=== PATIENT | male | born 1985 | race Caucasian/White ===

== ENCOUNTER 2018-10-29 23:00 | Inpatient (IN) | payer BC ==
[~2018-10-29] VITALS: Ht 185.4 cm; Wt 92.5 kg
[2018-10-29 23:00] VITALS: BP 140/88
--- NOTE | 2018-10-29 23:00 | NUR ---
ED Nurse Note: ROB POE RA 3 FROM HOME C/O NAUSE VOMITTING ABDOMINAL PAIN X 1900 TODAY. 2 ZOFRAN AND 2 MORPHING 4 MG WAS GIVEN ON THE FIELD PER EMS. PT VOMITTED WITH UNDIGESTED FOOD WHEN HE IS ON THE GURMD HAROLDO MADE AWARE. BLOOD WAS COLLECTED AND SENT TO LAB. PT IS COMPALINING OF 7/10 PAIN. GF ON BEDSIDE. WILL CONTINUE TO MONITOR.
--- NOTE | 2018-10-29 23:04 | Emergency Room Report ---
History of Present Illness General Chief Complaint: Abdominal Pain Source: Patient Present Illness HPI Is a 33-year-old male with no past medical history. He presents with chief complaint of acute onset of abdominal pain testicular pain. Onset about an hour ago. Multiple episodes vomiting. Pain is 10 out of 10. Pain radiates to bilateral testicles but mostly on the left side. EMS gave 8 mg of morphine and Zofran. Pain is better but still 8 out of 10. No diarrhea. Vomiting is nonbloody nonbilious. Denies any other complaint. Allergies: Coded Allergies: BEE VENOM PROTEIN (HONEY BEE) (Verified Allergy, Unknown, 10/29/18) Patient History Past Medical History: none, see triage record, old chart reviewed Past Surgical History: none Pertinent Family History: none Social History: Denies: smoking Immunizations: other Reviewed Nursing Documentation: PMH: Agreed; PSxH: Agreed Nursing Documentation-PMH Past Medical History: No Stated History Review of Systems Eye: Denies: eye pain, blurred vision ENT: Denies: ear pain, nose congestion, throat swelling Respiratory: Denies: cough, shortness of breath Cardiovascular: Denies: chest pain, palpitations Gastrointestinal: Reports: abdominal pain, nausea, vomiting; Denies: diarrhea Musculoskeletal: Denies: back pain, joint pain Skin: Denies: rash Neurological: Denies: headache, numbness Endocrine: Denies: increased thirst, increased urine Hematologic/Lymphatic: Denies: easy bruising All Other Systems: negative except mentioned in HPI Physical Exam Vital Signs Date Time Temp Pulse Resp B/P (MAP) Pulse Ox O2 Delivery O2 Flow Rate FiO2 10/29/18 22:55 90 18 140/88 99 Room Air vitals normal Sp02 EP Interpretation: reviewed, normal General Appearance: well appearing, no apparent distress, alert Head: normocephalic, atraumatic Eyes: bilateral eye PERRL, bilateral eye EOMI ENT: hearing grossly normal, normal pharynx Neck: full range of motion, supple, no meningismus Respiratory: chest non-tender, lungs clear, normal breath sounds Cardiovascular #1: regular rate, rhythm, no murmur Gastrointestinal: normal bowel sounds, non tender, no mass, no organomegaly, no bruit, non-distended Genitourinary: normal inspection, penis normal, other - No testicular tenderness or torsion Musculoskeletal: back normal, gait/station normal, normal range of motion Psychiatric: mood/affect normal Skin: warm/dry Medical Decision Making Diagnostic Impression: Primary Impression: Ureteral stone with hydronephrosis Additional Impressions: Intractable pain Asymptomatic bacteriuria ER Course Patient presents with renal colic with ureteral stone. He required multiple doses of pain medication. Still has pain and vomiting. Urine showed bacteria and small amount of white cells. Antibiotics given. Because of his intractable pain and possible UTI, will admit for pain control and urology consult. I contacted Dr. Monae for admission. Lab Results Impression labs unremarkable CT/MRI/US Diagnostic Results CT/MRI/US Diagnostic Results : Imaging Test Ordered: CT abdomen and pelvis Impression Read by radiologist. Obstructive uropathy secondary to 4 mm stone in the left distal ureter. Mild hydronephrosis. Mild periureteral stranding. Last Vital Signs Date Time Temp Pulse Resp B/P (MAP) Pulse Ox O2 Delivery O2 Flow Rate FiO2 10/29/18 22:55 90 18 140/88 99 Room Air Status: improved Disposition: ADMITTED INPATIENT Condition: Serious Scripts No Active Prescriptions or Reported Meds Alex Multani MD Oct 29, 2018 23:04
--- NOTE | 2018-10-29 23:05 | NUR ---
ED Nurse Note: pt unable to give urine specimen for now, morrod made aware. will continue to monitor.
[2018-10-29] MEDS ORDERED: Ketorolac 30mg Inj IV ONE (23:15)
[2018-10-29 23:17] LABS: BASOPHILS % (AUTO) 0.4 % (0.0-2.0); EOSINOPHILS % (AUTO) 1.9 % (0.0-3.0); HEMOGLOBIN 14.4 G/DL (14.2-18.0); LYMPHOCYTES % (AUTO) 11.9 % (20.0-45.0); MEAN CORPUSCULAR VOLUME 86 FL (80-99); MONOCYTES % (AUTO) 4.2 % (1.0-10.0); NEUTROPHILS % (AUTO) 81.7 % (45.0-75.0); PLATELET COUNT 251 K/UL (150-450); RED CELL DISTRIBUTION WIDTH 11.2 % (11.6-14.8)
[2018-10-29] MEDS ORDERED: Metoclopramide 10mg/2ml Inj ONE (23:30)
[2018-10-29] MEDS ORDERED: Metoclopramide 10mg/2ml Inj IVP ONE (23:30)
--- NOTE | 2018-10-29 23:30 | NUR ---
ED Nurse Note: PT VOMITTED UNDIOGESTED FOOD, PT STATED HE FEELS LIKE MOTION SICKNESS, REGLAN GIVEN IV. PT WENT TO CT WITH TECH
--- NOTE | 2018-10-29 23:40 | NUR ---
ED Nurse Note: PT CAME BACK FROM CT, DENIES HAVING ANOTHER VOMITUS. PT STATED HE FEELD OK. WILL CONTIONUE TO MONITOR.
[2018-10-30] MEDS ORDERED: HYDROmorphone 1mg/ml Carpuject IVP ONE (00:15)
[2018-10-30 00:17] LABS: ANION GAP 10 mmol/L (5-15); BLOOD UREA NITROGEN 20 mg/dL (7-18); CALCIUM 9.2 MG/DL (8.5-10.1); CARBON DIOXIDE 25 MMOL/L (21-32); CHLORIDE 105 MMOL/L (98-107); CREATININE 1.3 MG/DL (0.55-1.30); POTASSIUM 3.9 MMOL/L (3.5-5.1); SODIUM 140 MMOL/L (136-145)
[2018-10-30 00:21] LABS: ALANINE AMINOTRANSFERASE 45 U/L (12-78); ALBUMIN 3.8 G/DL (3.4-5.0); ALBUMIN/GLOBULIN RATIO 1.1 (1.0-2.7); ALKALINE PHOSPHATASE 86 U/L (46-116); ASPARTATE AMINO TRANSFERASE 18 U/L (15-37); BILIRUBIN,TOTAL 0.4 MG/DL (0.2-1.0)
[2018-10-30 01:15] LABS: APPEARANCE,URINE SLIGHTLY CLOUDY; BILIRUBIN, URINE NEGATIVE (NEGATIVE); GLUCOSE, URINE (UA) NEGATIVE (NEGATIVE); KETONES,URINE 3+ (NEGATIVE); LEUKOCYTE ESTERASE ,URINE 1+ (NEGATIVE); NITRITE,URINE NEGATIVE (NEGATIVE); PH,URINE 7 (4.5-8.0); PROTEIN,URINE 2+ (NEGATIVE); UROBILINOGEN,URINE NORMAL MG/DL (0.0-1.0)
[2018-10-30 01:19] LABS: COLOR,URINE YELLOW
[2018-10-30] MEDS ORDERED: cefTRIAXone 1 GM in NS 55 ML IVPB ONE (01:45)
[2018-10-30 02:16] VITALS: BP 147/86
--- NOTE | 2018-10-30 02:39 | NUR ---
ED Nurse Note: pt was admitted to the hospital, report given to mariam mae. pt left the ed with all belongings. gf notified to the room number
--- NOTE | 2018-10-30 02:45 | NUR ---
ED Nurse Note: pt transported by rn to room 421 with all belongings with stable vs.
[2018-10-30] MEDS: Hydromorphone 0.5mg/0.5ml inj IVP PRN ×2 (03:54→12:25)
[2018-10-30 04:00] VITALS: BP 144/96
--- NOTE | 2018-10-30 06:00 | NUR ---
NURSE NOTES: Admitted a 33 year old male, alert and oriented x4, with complaint of pain 8/10 on lower abdomen area. Oriented to room. Instructed the use of call light. Call light and needs in reach. Spoke to Dr. Lowery orders obtained and carried out.
--- NOTE | 2018-10-30 07:35 | NUR ---
HAND-OFF: Report given to MANDA Lane.
--- NOTE | 2018-10-30 07:51 | NUR ---
NURSE NOTES: Patient asleep, on sign of distress and shortness of breath; no sign of chest pain; on room air; NPO and sign of the door; girl-friend room in; urinal within reach; bed at lowest position, side rails up x2, breaks engaged; IV at LAC fluid running; Will keep monitoring.
[2018-10-30 08:00] VITALS: BP 141/88
--- NOTE | 2018-10-30 08:52 | Consultation ---
History of Present Illness General Date patient seen: Oct 30, 2018 Chief Complaint: Present Illness Allergies: Coded Allergies: BEE VENOM PROTEIN (HONEY BEE) (Verified Allergy, Unknown, 10/29/18) Medication History No Active Prescriptions or Reported Meds Patient History Healthcare decision maker Resuscitation status Full Code Advanced Directive on File Physical Exam Last 24 Hour Vital Signs Date Time Temp Pulse Resp B/P (MAP) Pulse Ox O2 Delivery O2 Flow Rate FiO2 10/30/18 04:46 Room Air 10/30/18 04:00 98.4 85 20 144/96 (112) 99 10/30/18 02:45 98.0 84 12 147/86 98 Room Air 10/30/18 02:16 84 12 147/86 98 Room Air 10/30/18 01:19 98.0 10/29/18 23:38 98.0 10/29/18 23:00 98.0 70 18 140/88 99 Room Air 10/29/18 23:00 90 18 Room Air 10/29/18 22:55 90 18 140/88 99 Room Air Intake and Output 10/29/18 10/30/18 19:00 07:00 Intake Total 4260 ml Balance 4260 ml Intake IV Total 4260 ml # Voids 2 Laboratory Tests Test 10/29/18 23:03 10/29/18 23:59 10/30/18 01:07 White Blood Count 16.0 K/UL (4.8-10.8) H Red Blood Count 4.90 M/UL (4.70-6.10) Hemoglobin 14.4 G/DL (14.2-18.0) Hematocrit 42.0 % (42.0-52.0) Mean Corpuscular Volume 86 FL (80-99) Mean Corpuscular Hemoglobin 29.5 PG (27.0-31.0) Mean Corpuscular Hemoglobin Concent 34.4 G/DL (32.0-36.0) Red Cell Distribution Width 11.2 % (11.6-14.8) L Platelet Count 251 K/UL (150-450) Mean Platelet Volume 7.9 FL (6.5-10.1) Neutrophils (%) (Auto) 81.7 % (45.0-75.0) H Lymphocytes (%) (Auto) 11.9 % (20.0-45.0) L Monocytes (%) (Auto) 4.2 % (1.0-10.0) Eosinophils (%) (Auto) 1.9 % (0.0-3.0) Basophils (%) (Auto) 0.4 % (0.0-2.0) Sodium Level 140 MMOL/L (136-145) Potassium Level 3.9 MMOL/L (3.5-5.1) Chloride Level 105 MMOL/L (98-107) Carbon Dioxide Level 25 MMOL/L (21-32) Anion Gap 10 mmol/L (5-15) Blood Urea Nitrogen 20 mg/dL (7-18) H Creatinine 1.3 MG/DL (0.55-1.30) Estimat Glomerular Filtration Rate > 60 mL/min (>60) Glucose Level 110 MG/DL (74-106) H Calcium Level 9.2 MG/DL (8.5-10.1) Total Bilirubin 0.4 MG/DL (0.2-1.0) Aspartate Amino Transf (AST/SGOT) 18 U/L (15-37) Alanine Aminotransferase (ALT/SGPT) 45 U/L (12-78) Alkaline Phosphatase 86 U/L (46-116) Total Protein 7.3 G/DL (6.4-8.2) Albumin 3.8 G/DL (3.4-5.0) Globulin 3.5 g/dL Albumin/Globulin Ratio 1.1 (1.0-2.7) Lipase 110 U/L (73-393) Urine Color Yellow Urine Appearance Slightly cloudy Urine pH 7 (4.5-8.0) Urine Specific [place] 1.015 (1.005-1.035) Urine Protein 2+ (NEGATIVE) H Urine Glucose (UA) Negative (NEGATIVE) Urine Ketones 3+ (NEGATIVE) H Urine Blood 5+ (NEGATIVE) H Urine Nitrite Negative (NEGATIVE) Urine Bilirubin Negative (NEGATIVE) Urine Urobilinogen Normal MG/DL (0.0-1.0) Urine Leukocyte Esterase 1+ (NEGATIVE) H Urine RBC Tntc /HPF (0 - 0) H Urine WBC 2-4 /HPF (0 - 0) Urine Squamous Epithelial Cells None /LPF (NONE/OCC) Urine Calcium Oxalate Crystals Few /LPF (NONE) Urine Bacteria Moderate /HPF (NONE) H Urine Mucus Many /LPF (NONE/OCC) H Height (Feet): 6 Height (Inches): 1.00 Weight (Pounds): 204 Medications Current Medications Medications (Trade) Dose Ordered Sig/Dakota Route PRN Reason Start Time Stop Time Status Last Admin Dose Admin Acetaminophen (Tylenol) 650 mg Q4H PRN ORAL Mild Pain/Temp > 100.5 10/30/18 03:30 11/29/18 03:29 Diphenhydramine HCl (Benadryl) 25 mg Q4H PRN ORAL Itching 10/30/18 03:30 11/29/18 03:29 Hydromorphone HCl (Dilaudid) 0.5 mg Q4H PRN IVP Severe Pain (Pain Scale 7-10) 10/30/18 03:30 11/06/18 03:29 10/30/18 03:54 Ondansetron HCl (Zofran) 4 mg Q6H PRN IVP Nausea & Vomiting 10/30/18 03:30 11/29/18 03:29 10/30/18 03:53 Sodium Chloride 1,000 ml @ 75 mls/hr [id number] IV 10/30/18 04:00 11/29/18 03:59 10/30/18 04:02 Assessment/Plan Assessment/Plan (1) Nephrolithiasis (2) Urethral stone (3) Intractable pain seen dictated Geovanni Fletcher Oct 30, 2018 08:52
--- NOTE | 2018-10-30 09:37 | Diagnostic Imaging Report ---
Indication: Reason For Exam: ABD PAIN Technique: Spiral acquisitions obtained through the abdomen and pelvis. No oral or IV contrast utilized, per urinary stone protocol. Multiplanar reconstructions were generated. Total dose length product 856.28 mGycm. CTDIvol(s) 15.7 mGy. Dose reduction achieved using automated exposure control Comparison: none Findings: There is a there is a 4 mm diameter calculus in the mid to distal left ureter, approximately 10 cm proximal to the ureterovesical junction. This results in minimal fullness of the proximal ureter and left renal collecting system, minimal perinephric fat stranding and periureteral fat stranding. Lack of IV contrast limits assessment of the renal parenchyma. No gross renal parenchymal mass or cyst demonstrated. No renal calculi demonstrated on either side. No right ureteral calculi, right hydronephrosis or hydroureter. The appendix is normal. No evidence of diverticulosis or diverticulitis. No small bowel distention. No free or loculated intraperitoneal gas or fluid is evident. Distal esophagus, stomach, duodenum are unremarkable. Lack of IV contrast limits assessment of the other solid organs. The liver is minimally hypoattenuating. No focal abnormality. Gallbladder, bile ducts, pancreas, spleen, adrenals. No renal arterial calculi, hydronephrosis, or hydroureter. No pelvic mass or adenopathy. No retroperitoneal or mesenteric mass or adenopathy. The included lung bases are clear. The bones are unremarkable. Impression: Positive for 4 mm left mid to distal ureteral calculus. Only minimal dilatation of the left ureter and renal collecting system. Mild hepatic low attenuation, consistent with mild fatty change This agrees with the preliminary interpretation provided overnight by [facility] teleradiology service. The CT scanner at [facility] is accredited by the [employer] and the scans are performed using protocols designed to limit radiation exposure to as low as reasonably achievable to attain images of sufficient resolution adequate for diagnostic evaluation.
[2018-10-30] MEDS ORDERED: Metoclopramide 10mg/2ml Inj IVP PRN ×2 (10:15→11:15)
--- NOTE | 2018-10-30 11:52 | GI Initial Consult Note ---
History of Present Illness General Date patient seen: Oct 30, 2018 Time patient seen: 11:46 Reason for Hospitalization: Abdominal Pain Referring physician: SHARON TAVERA Reason for Consultation: SEVERE NAUSEA Present Illness HPI Is a 33-year-old male with no past medical history. He presents with chief complaint of acute onset of abdominal pain testicular pain. Onset about an hour ago. Multiple episodes vomiting. Pain is 10 out of 10. Pain radiates to bilateral testicles but mostly on the left side. EMS gave 8 mg of morphine and Zofran. Pain is better but still 8 out of 10. No diarrhea. Vomiting is nonbloody nonbilious. Denies any other complaint. GI consulted for severe nausea and vomiting. Pt seen, awake has c/o of severe nausea and prior episode of vomiting with any relief from zofran. According the patient, prior to the episode he was out to dinner in which he developed his current symptoms. In addition, he had complaint of accompanied diarrhea which has currently resolved. Abdominal CT showed positive for 4 mm left mid to distal ureteral calculus. Only minimal dilatation of the left ureter and renal collecting system. No history of endoscopy or colonoscopy. Patient admits to daily marijuana use. Home Meds No Active Prescriptions or Reported Meds Med list reviewed/reconciled: Yes Allergies: Coded Allergies: BEE VENOM PROTEIN (HONEY BEE) (Verified Allergy, Unknown, 10/29/18) Patient History History Provided By: Patient, Medical Record PMH Narrative Past Medical History: none, see triage record, old chart reviewed Past Surgical History: none Pertinent Family History: none Social History: Denies: smoking Immunizations: other Reviewed Nursing Documentation: PMH: Agreed; PSxH: Agreed Nursing Documentation-PM Past Medical History: No Stated History Social History: Reports: drug use - Review of Systems All Other Systems: negative except mentioned in HPI Physical Exam Vital Signs Date Time Temp Pulse Resp B/P (MAP) Pulse Ox O2 Delivery O2 Flow Rate FiO2 10/29/18 22:55 90 18 140/88 99 Room Air 10/29/18 23:00 98.0 Sp02 EP Interpretation: reviewed, normal Labs Laboratory Tests Test 10/29/18 23:03 10/29/18 23:59 10/30/18 01:07 White Blood Count 16.0 K/UL (4.8-10.8) H Red Blood Count 4.90 M/UL (4.70-6.10) Hemoglobin 14.4 G/DL (14.2-18.0) Hematocrit 42.0 % (42.0-52.0) Mean Corpuscular Volume 86 FL (80-99) Mean Corpuscular Hemoglobin 29.5 PG (27.0-31.0) Mean Corpuscular Hemoglobin Concent 34.4 G/DL (32.0-36.0) Red Cell Distribution Width 11.2 % (11.6-14.8) L Platelet Count 251 K/UL (150-450) Mean Platelet Volume 7.9 FL (6.5-10.1) Neutrophils (%) (Auto) 81.7 % (45.0-75.0) H Lymphocytes (%) (Auto) 11.9 % (20.0-45.0) L Monocytes (%) (Auto) 4.2 % (1.0-10.0) Eosinophils (%) (Auto) 1.9 % (0.0-3.0) Basophils (%) (Auto) 0.4 % (0.0-2.0) Sodium Level 140 MMOL/L (136-145) Potassium Level 3.9 MMOL/L (3.5-5.1) Chloride Level 105 MMOL/L (98-107) Carbon Dioxide Level 25 MMOL/L (21-32) Anion Gap 10 mmol/L (5-15) Blood Urea Nitrogen 20 mg/dL (7-18) H Creatinine 1.3 MG/DL (0.55-1.30) Estimat Glomerular Filtration Rate > 60 mL/min (>60) Glucose Level 110 MG/DL (74-106) H Calcium Level 9.2 MG/DL (8.5-10.1) Total Bilirubin 0.4 MG/DL (0.2-1.0) Aspartate Amino Transf (AST/SGOT) 18 U/L (15-37) Alanine Aminotransferase (ALT/SGPT) 45 U/L (12-78) Alkaline Phosphatase 86 U/L (46-116) Total Protein 7.3 G/DL (6.4-8.2) Albumin 3.8 G/DL (3.4-5.0) Globulin 3.5 g/dL Albumin/Globulin Ratio 1.1 (1.0-2.7) Lipase 110 U/L (73-393) Urine Color Yellow Urine Appearance Slightly cloudy Urine pH 7 (4.5-8.0) Urine Specific [place] 1.015 (1.005-1.035) Urine Protein 2+ (NEGATIVE) H Urine Glucose (UA) Negative (NEGATIVE) Urine Ketones 3+ (NEGATIVE) H Urine Blood 5+ (NEGATIVE) H Urine Nitrite Negative (NEGATIVE) Urine Bilirubin Negative (NEGATIVE) Urine Urobilinogen Normal MG/DL (0.0-1.0) Urine Leukocyte Esterase 1+ (NEGATIVE) H Urine RBC Tntc /HPF (0 - 0) H Urine WBC 2-4 /HPF (0 - 0) Urine Squamous Epithelial Cells None /LPF (NONE/OCC) Urine Calcium Oxalate Crystals Few /LPF (NONE) Urine Bacteria Moderate /HPF (NONE) H Urine Mucus Many /LPF (NONE/OCC) H General Appearance: well appearing, no apparent distress, alert Head: normocephalic EENT: PERRL/EOMI, normal ENT inspection Neck: supple Respiratory: normal breath sounds, no respiratory distress Cardiovascular: normal rate Gastrointestinal: normal inspection, non tender, soft, normal bowel sounds, non -distended Rectal: deferred Genitourinary: deferred Musculoskeletal: normal inspection, back normal Neurologic: normal inspection, alert, oriented x3, responsive Psychiatric: normal inspection, judgement/insight normal, memory normal Skin: normal inspection, normal color, no rash, warm/dry, palpation normal, well hydrated Lymphatic: normal inspection, no adenopathy Current Medications Current Medications Medications (Trade) Dose Ordered Sig/Dakota Route PRN Reason Start Time Stop Time Status Last Admin Dose Admin Acetaminophen (Tylenol) 650 mg Q4H PRN ORAL Mild Pain/Temp > 100.5 10/30/18 03:30 11/29/18 03:29 Diphenhydramine HCl (Benadryl) 25 mg Q4H PRN ORAL Itching 10/30/18 03:30 11/29/18 03:29 Hydromorphone HCl (Dilaudid) 0.5 mg Q4H PRN IVP Severe Pain (Pain Scale 7-10) 10/30/18 03:30 11/06/18 03:29 10/30/18 03:54 Metoclopramide HCl (Reglan) 10 mg Q6H PRN IVP Nausea & Vomiting 10/30/18 11:15 11/29/18 11:14 Ondansetron HCl (Zofran) 4 mg Q6H PRN IVP Nausea & Vomiting 10/30/18 03:30 11/29/18 03:29 10/30/18 09:40 Piperacillin Sod/ Tazobactam Sod 3.375 gm/Dextrose 110 ml @ 27.5 mls/hr EVERY 8 HOURS IVPB 10/30/18 14:00 11/04/18 13:59 Sodium Chloride 1,000 ml @ 75 mls/hr [id number] IV 10/30/18 04:00 11/29/18 03:59 10/30/18 04:02 GI: Plan Problems: (1) Gastroenteritis (2) Nausea & vomiting (3) Intractable pain (4) Ureteral stone with hydronephrosis (5) Asymptomatic bacteriuria Plan CT AP reviewed >> Positive for 4 mm left mid to distal ureteral calculus. symptomatic treatment at this time zofran prn, reglan 10mg IV for persistent nausea or vomiting IV/PO hydration clear liquid diet, advance as tolerated electrolyte correction abx prophylaxis utox follow labs Discussed with Dr. Dallas. Thank you for this patient referral, we will follow. The patient was seen and examined at bedside and all new and available data was reviewed in the patients chart. I agree with the above findings, impression and plan. (Patient seen earlier today. Signature stamp does not reflect patient encounter time.). - MD Nerissa Garza,Brigette-Gonzalo VIVIAN Oct 30, 2018 11:52
[2018-10-30 12:00] VITALS: BP 126/62
--- NOTE | 2018-10-30 13:07 | NUR ---
NURSE NOTES: OB stool and urine collection ordered, container left at bed side, patient is aware.
--- NOTE | 2018-10-30 13:53 | NUR ---
BUTTON BUTTONHOLE MARKERINFORMATICA MDM ARCHITECT 33 Y/O MALE BIBA FROM HOME TO ER CC:ABDOMINAL PAIN SI:URETERAL STONE/ INTRACTABLE PAIN VS: BP 140/88, P 90, T 98.0, RR 18, SpO2 99 WBC 16.0, BUN 20, GLUCOSE 110, URINE PROTEIN 2+, URINE KETONES 3+, URINE BLOOD 5+, URINE BACTERIA MODERATE, URINE MUCUS MANY ABDOMINAL CT Impression: Positive for 4 mm left mid to distal ureteral calculus. Only minimal dilatation of the left ureter and renal collecting system. IS:NS IV x1L Dilaudid Zofran Ceftriaxone Reglan Toradol MED/SURG STATUS DC PLAN RETURN HOME
[2018-10-30] MEDS ORDERED: Piperacillin/Tazobactam 3.375 GM in D5W 110 ML IVPB SCH (14:00)
[2018-10-30 16:00] VITALS: BP 137/63
--- NOTE | 2018-10-30 16:59 | NUR ---
*-* INSURANCE *-* ALL CLINICALS, REVIEWS AND INTERQUAL HAVE BEEN FAXED Tammie BECK:JOVON P:[phone] F:[phone] REF# [id number]
--- NOTE | 2018-10-30 19:44 | NUR ---
HAND-OFF: Report given to MANDA Noriega.
[2018-10-30 20:07] VITALS: BP 135/82
--- NOTE | 2018-10-30 20:17 | NUR ---
NURSE NOTES: Received patient awake,alert,verbal,resting in bed,comfortable,no complaints.
--- NOTE | 2018-10-30 21:16 | Consultation ---
DATE OF CONSULTATION: 10/30/2018 INFECTIOUS DISEASES CONSULTATION CONSULTING PHYSICIAN: Evan Pressley M.D. PRIMARY ATTENDING PHYSICIAN: Quiana Lowery M.D. REASON FOR CONSULTATION: Hematuria and nephrolithiasis. HISTORY OF PRESENT ILLNESS: The patient is a 33-year-old white male admitted today from home complaining of lower abdominal pain and vomiting. It was found that the patient has a urethral stone in the left side. Pain was felt in the left lower abdomen with intensity of 8 to 10 with radiation to the scrotum. PAST MEDICAL HISTORY: Insignificant. ALLERGIES: bee venom. MEDICATIONS: Get a dose of Rocephin in the ER, Zosyn, metoclopramide, sodium chloride, hydromorphone, Zofran, Tylenol, and diphenhydramine. SOCIAL HISTORY: Single. Occasionally smokes. Denies alcohol or drug abuse. REVIEW OF SYSTEMS: No fever. No chills. The patient currently is NPO and nausea and vomiting has resolved. He has lower abdominal pain. He does not notice any change in urine coloration. PHYSICAL EXAMINATION: VITAL SIGNS: Temperature 96, pulse 93, and blood pressure 141/88. GENERAL APPEARANCE: No acute distress, well-developed. HEAD AND NECK: [place] conjunctiva. HEART: S1 and S2, regular. LUNGS: Clear ABDOMEN: Soft in left lower quadrant. EXTREMITIES: No edema. LABORATORY AND DIAGNOSTIC DATA: UA showed positive leukocyte esterase, RBC too numerous to count, and bacteria moderate. WBC 85282, hemoglobin 14.4, hematocrit 42, and platelet is 251,000. Sodium 140, potassium 2.9, chloride 105, bicarbonate 25, BUN 20, creatinine 1.3, and glucose 110. CT scan of the abdomen and pelvis showed a 4 mm left mid to distal urethral calculus. Minimum dilation of left ureter and renal collecting system. IMPRESSION: Nephrolithiasis and urethral stone since the patient passing the stone. The patient has leukocytosis, hematuria, and bacteriuria. RECOMMENDATIONS: Discontinue Zosyn. We will follow up the cultures. start on Rocephin. Urologic evaluation. At the end of my exam, I thank Dr. Lowery for involving me in the care of this patient. Evan Pressley M.D. DR: SHAWN JOB#: [id number] CC: LILA
--- NOTE | 2018-10-31 01:32 | History and Physical Report ---
DATE OF ADMISSION: 10/30/2018 HISTORY OF PRESENT ILLNESS: The patient basically came in due to intractable flank pain. He was found to have a kidney stone. The patient was also having persistent vomiting. The patient was found to have a 4 mm left ureteral stone with intractable pain, leukocytosis, urinary tract infection, and moderate bacteria. He was admitted to the medical floor for those reasons. The patient has also been having persistent vomiting. The abdominal pain and vomiting and chills have started one day ago and also had sustained some testicular pain as well. PAST MEDICAL HISTORY: Significant for GERD. PAST SURGICAL HISTORY: None. MEDICATIONS: None. SOCIAL HISTORY: History of smoking and history of drug abuse. FAMILY HISTORY: Noncontributory. REVIEW OF SYSTEMS: HEENT: Denies headaches. RESPIRATORY: Denies shortness of breath. Denies cough. CARDIOVASCULAR: Denies chest pain. Denies orthopnea. GASTROINTESTINAL: Reports vomiting persistently for one day and abdominal pain for one day radiating to the testicles. EXTREMITY: Denies pain in the lower extremities. Denies any change in speech pattern. Feels weak. PHYSICAL EXAMINATION: VITAL SIGNS: Temperature 99.3, pulse 86, and blood pressure 126/62. HEENT: PERRLA. NECK: Supple. No lymphadenopathy. CHEST: Clear to auscultation. CARDIOVASCULAR: Regular rate and rhythm. No murmurs or extra sounds. GASTROINTESTINAL: Soft. Positive bowel sounds. Flank pain. No organomegaly. EXTREMITIES: No edema. Reflexes are equal on both sides. Moves all four extremities. Sensory intact to light touch. LABORATORY DATA: Laboratory novak, WBC of 16, hemoglobin 14.4, and platelets of 251,000. Sodium 140, potassium 3.9, chloride 105, BUN of 20, creatinine 1.3, and glucose of 110. ASSESSMENT AND PLAN: The patient is found to have a 4 mm ureteral stone, abdominal pain, flank pain, and colicky pain due to the ureteral stone. The patient also has leukocytosis and most likely looks like urinary tract infection. The patient also has persistent vomiting. I have asked Dr. Dallas, Dr. Santos, Dr. Swanson, Dr. Evan Pressley, and Dr. Hao Lao to see the patient to help with the management of the above-mentioned diagnoses and further treatment as well. Ali Pino Lowery DR: WINNIE JOB#: [id number] CC:
[2018-10-31 04:00] VITALS: BP 128/74
--- NOTE | 2018-10-31 07:32 | NUR ---
HAND-OFF: Report given to Ariana Samaniego RN.
--- NOTE | 2018-10-31 07:33 | NUR ---
NURSE NOTES: Patient alert x4, on room air, no sign of distress and shortness of breath; no sign of chest pain; IV LAC fluid running; bed at lowest position, side rails up x2, breaks engaged. Call light within reach, will keep monitoring.
[2018-10-31 07:48] LABS: BASOPHILS % (AUTO) 0.4 % (0.0-2.0); EOSINOPHILS % (AUTO) 1.4 % (0.0-3.0); HEMATOCRIT 40.3 % (42.0-52.0); HEMOGLOBIN 13.8 G/DL (14.2-18.0); LYMPHOCYTES % (AUTO) 30.2 % (20.0-45.0); MEAN CORPUSCULAR VOLUME 87 FL (80-99); MONOCYTES % (AUTO) 8.6 % (1.0-10.0); NEUTROPHILS % (AUTO) 59.4 % (45.0-75.0); PLATELET COUNT 210 K/UL (150-450); RED BLOOD COUNT 4.63 M/UL (4.70-6.10); RED CELL DISTRIBUTION WIDTH 11.5 % (11.6-14.8); WHITE BLOOD COUNT 8.9 K/UL (4.8-10.8)
[2018-10-31 08:00] VITALS: BP 123/89
[2018-10-31 08:21] LABS: ANION GAP 8 mmol/L (5-15); BLOOD UREA NITROGEN 11 mg/dL (7-18); CALCIUM 8.8 MG/DL (8.5-10.1); CARBON DIOXIDE 26 MMOL/L (21-32); CHLORIDE 104 MMOL/L (98-107); CREATININE 1.1 MG/DL (0.55-1.30); PHOSPHORUS 3.2 MG/DL (2.5-4.9); POTASSIUM 3.5 MMOL/L (3.5-5.1); SODIUM 138 MMOL/L (136-145)
[2018-10-31] MEDS ORDERED: cefTRIAXone 1 GM in D5W 55 ML IVPB SCH (09:00)
--- NOTE | 2018-10-31 10:04 | NUR ---
NURSE NOTES: Pharmacy didn't bring the Rocephin to the floor, called them, still waiting.
--- NOTE | 2018-10-31 10:45 | Consultation ---
DATE OF CONSULTATION: 10/30/2018 NOTE: POOR AUDIO PAIN MANAGEMENT CONSULTATION CONSULTING PHYSICIAN: Julia Swanson M.D. REFERRING PHYSICIAN: Quiana Lowery M.D. PHYSICIAN FRAMING INSPECTOR: Evens Ferro CHIEF COMPLAINT: Abdominal and testicular pain. HISTORY OF PRESENT ILLNESS: This is a 33-year-old male who is being seen on the Med/Surg floor of [facility] for initial pain management consultation. The patient apparently has been having pain in the abdomen since 8 last night. It is a constant acute pain, rating at 10/10. sharp pain and is reduced with medication. Found to have nephrolithiasis, urethral stone, at this time passing the stone. started on Dilaudid 0.5mg IV every four hours as needed for severe pain. The patient reports that waiting to be seen by a urologist at this time. PAST MEDICAL HISTORY: Denies. PAST SURGICAL HISTORY: Denies. SOCIAL HISTORY: He smokes marijuana. Denies alcohol abuse or IV drug abuse. ALLERGIES: No known drug allergies. MEDICATIONS: Denies taking medications as an outpatient. REVIEW OF SYSTEMS: Denies rash, fever, chills, sweating, dizziness, drowsiness, blurred vision, sore throat, or change in weight. No shortness of breath or chest pain. No nausea, vomiting, diarrhea, or blood in the stool or urine. No bowel or bladder incontinence. No dysuria. He is complaining of abdominal and testicular pain. PHYSICAL EXAMINATION: GENERAL: Alert, awake, and oriented. VITAL SIGNS: Blood pressure 144/92, heart rate 85, oxygen saturation 99%, respirations 17, and temperature 98. HEENT: PERRLA. NECK: Range of motion is full in all directions. No tenderness. No adenopathy. LUNGS: Clear bilaterally. HEART: Regular. ABDOMEN: Tender to palpation. BACK: Range of motion is full in flexion and extension. . EXTREMITIES: Upper and lower extremity range of motion is full in all directions. No cyanosis. No clubbing. No edema. Sensory is intact. Reflexes are not obtainable. No adenopathy. ASSESSMENT AND PLAN: This is a 33 y/o male with nephrolithiasis, urethral stone and intractable pain. Patient will be continued on Dilaudid. The patient was discussed with Dr. Swanson and he concurred. We will follow the patient. Thank you very much for the courtesy of this consultation. Julia Swanson M.D. EVERETT Ferro DR: RUSSELL JOB#: [id number] CC: LILA
--- NOTE | 2018-10-31 11:22 | GI Progress Note ---
Assessment/Plan Problems: (1) Cyclic vomiting syndrome ICD Codes: G43.A0 - Cyclical vomiting, not intractable SNOMED: 68719255 (2) Ureteral stone with hydronephrosis ICD Codes: N13.2 - Hydronephrosis with renal and ureteral calculous obstruction SNOMED: 346077171 (3) Nausea & vomiting ICD Codes: R11.2 - Nausea with vomiting, unspecified SNOMED: 81693148 (4) Asymptomatic bacteriuria ICD Codes: R82.71 - Bacteriuria SNOMED: 240943101 (5) Gastroenteritis ICD Codes: K52.9 - Noninfective gastroenteritis and colitis, unspecified SNOMED: 86347463 Status: stable Status Narrative Discussed with Dr. Dallas Assessment/Plan CT AP reviewed >> Positive for 4 mm left mid to distal ureteral calculus . Urine tox positive for marijuana advance to regular diet, okay for DC per GI standpoint if tolerates symptomatic treatment at this time zofran prn, reglan 10mg IV for persistent nausea or vomiting IV/PO hydration electrolyte correction abx prophylaxis follow labs fu nephro/urology The patient was seen and examined at bedside and all new and available data was reviewed in the patients chart. I agree with the above findings, impression and plan. (Patient seen earlier today. Signature stamp does not reflect patient encounter time.). - Shaan Dallas MD Subjective Gastrointestinal/Abdominal: Reports: no symptoms Subjective Nausea vomiting resolved Wants to try solid food Ready to be discharged Objective Last 24 Hour Vital Signs Date Time Temp Pulse Resp B/P (MAP) Pulse Ox O2 Delivery O2 Flow Rate FiO2 10/31/18 09:00 Room Air 10/31/18 08:00 97.0 83 18 123/89 (100) 97 10/31/18 04:00 96.8 88 18 128/74 (92) 97 10/30/18 21:00 Room Air 10/30/18 20:07 98.6 77 18 135/82 (99) 98 10/30/18 16:00 98.2 108 18 137/63 (87) 95 10/30/18 12:55 96.0 10/30/18 12:00 99.3 86 18 126/62 (83) 96 Intake and Output 10/30/18 10/31/18 19:00 07:00 Intake Total 1075 ml 1395 ml Output Total 100 ml Balance 975 ml 1395 ml Intake Oral 250 ml 420 ml IV Total 825 ml 975 ml Output Urine Total 100 ml # Voids 4 3 Laboratory Tests Test 10/30/18 17:14 10/31/18 00:00 10/31/18 07:15 Urine Opiates Screen Negative (NEGATIVE) Urine Barbiturates Screen Negative (NEGATIVE) Phencyclidine (PCP) Screen Negative (NEGATIVE) Urine Amphetamines Screen Negative (NEGATIVE) Urine Benzodiazepines Screen Negative (NEGATIVE) Urine Cocaine Screen Negative (NEGATIVE) Urine Marijuana (THC) Screen Positive (NEGATIVE) H Stool Occult Blood Negative (NEGATIVE) White Blood Count 8.9 K/UL (4.8-10.8) Red Blood Count 4.63 M/UL (4.70-6.10) L Hemoglobin 13.8 G/DL (14.2-18.0) L Hematocrit 40.3 % (42.0-52.0) L Mean Corpuscular Volume 87 FL (80-99) Mean Corpuscular Hemoglobin 29.8 PG (27.0-31.0) Mean Corpuscular Hemoglobin Concent 34.2 G/DL (32.0-36.0) Red Cell Distribution Width 11.5 % (11.6-14.8) L Platelet Count 210 K/UL (150-450) Mean Platelet Volume 7.7 FL (6.5-10.1) Neutrophils (%) (Auto) 59.4 % (45.0-75.0) Lymphocytes (%) (Auto) 30.2 % (20.0-45.0) Monocytes (%) (Auto) 8.6 % (1.0-10.0) Eosinophils (%) (Auto) 1.4 % (0.0-3.0) Basophils (%) (Auto) 0.4 % (0.0-2.0) Sodium Level 138 MMOL/L (136-145) Potassium Level 3.5 MMOL/L (3.5-5.1) Chloride Level 104 MMOL/L (98-107) Carbon Dioxide Level 26 MMOL/L (21-32) Anion Gap 8 mmol/L (5-15) Blood Urea Nitrogen 11 mg/dL (7-18) Creatinine 1.1 MG/DL (0.55-1.30) Estimat Glomerular Filtration Rate > 60 mL/min (>60) Glucose Level 103 MG/DL (74-106) Calcium Level 8.8 MG/DL (8.5-10.1) Phosphorus Level 3.2 MG/DL (2.5-4.9) Magnesium Level 1.8 MG/DL (1.8-2.4) Height (Feet): 6 Height (Inches): 1.00 Weight (Pounds): 204 General Appearance: WD/WN, no apparent distress, alert Cardiovascular: normal rate Respiratory/Chest: normal breath sounds, no respiratory distress Abdominal Exam: normal bowel sounds, non tender, soft Extremities: normal range of motion, non-tender Jaspal Multani NP Oct 31, 2018 11:22
[2018-10-31 12:00] VITALS: BP 136/81
--- NOTE | 2018-10-31 12:15 | Infectious Diseases Prog Note ---
Assessment/Plan Assessment/Plan A; Leukocytosis resolved Renal colic Nephrolithiasis/ ureteral stone P; Urologic evaluation May discontinue Rocephin Subjective ROS Limited/Unobtainable: No Constitutional: Reports: no symptoms Respiratory: Reports: no symptoms Cardiovascular: Reports: no symptoms Gastrointestinal/Abdominal: Reports: no symptoms Genitourinary: Reports: other - on and off left scrotal pain Allergies: Coded Allergies: BEE VENOM PROTEIN (HONEY BEE) (Verified Allergy, Unknown, 10/29/18) Objective Vital Signs Last 24 Hour Vital Signs Date Time Temp Pulse Resp B/P (MAP) Pulse Ox O2 Delivery O2 Flow Rate FiO2 10/31/18 12:00 97.9 82 18 136/81 (99) 97 10/31/18 09:00 Room Air 10/31/18 08:00 97.0 83 18 123/89 (100) 97 10/31/18 04:00 96.8 88 18 128/74 (92) 97 10/30/18 21:00 Room Air 10/30/18 20:07 98.6 77 18 135/82 (99) 98 10/30/18 16:00 98.2 108 18 137/63 (87) 95 10/30/18 12:55 96.0 Height (Feet): 6 Height (Inches): 1.00 Weight (Pounds): 204 General Appearance: no acute distress HEENT: mucous membranes moist Respiratory/Chest: lungs clear Cardiovascular: normal rate Abdomen: soft, non tender Extremities: no edema Neurologic/Psychiatric: alert, oriented x 3, responsive Microbiology Date/Time Source Procedure Growth Status 10/30/18 01:07 Urine,Clean Catch Urine Culture - Preliminary NO GROWTH AFTER 24 HOURS Resulted Laboratory Tests Test 10/30/18 17:14 10/31/18 00:00 10/31/18 07:15 Urine Opiates Screen Negative (NEGATIVE) Urine Barbiturates Screen Negative (NEGATIVE) Phencyclidine (PCP) Screen Negative (NEGATIVE) Urine Amphetamines Screen Negative (NEGATIVE) Urine Benzodiazepines Screen Negative (NEGATIVE) Urine Cocaine Screen Negative (NEGATIVE) Urine Marijuana (THC) Screen Positive (NEGATIVE) H Stool Occult Blood Negative (NEGATIVE) White Blood Count 8.9 K/UL (4.8-10.8) Red Blood Count 4.63 M/UL (4.70-6.10) L Hemoglobin 13.8 G/DL (14.2-18.0) L Hematocrit 40.3 % (42.0-52.0) L Mean Corpuscular Volume 87 FL (80-99) Mean Corpuscular Hemoglobin 29.8 PG (27.0-31.0) Mean Corpuscular Hemoglobin Concent 34.2 G/DL (32.0-36.0) Red Cell Distribution Width 11.5 % (11.6-14.8) L Platelet Count 210 K/UL (150-450) Mean Platelet Volume 7.7 FL (6.5-10.1) Neutrophils (%) (Auto) 59.4 % (45.0-75.0) Lymphocytes (%) (Auto) 30.2 % (20.0-45.0) Monocytes (%) (Auto) 8.6 % (1.0-10.0) Eosinophils (%) (Auto) 1.4 % (0.0-3.0) Basophils (%) (Auto) 0.4 % (0.0-2.0) Sodium Level 138 MMOL/L (136-145) Potassium Level 3.5 MMOL/L (3.5-5.1) Chloride Level 104 MMOL/L (98-107) Carbon Dioxide Level 26 MMOL/L (21-32) Anion Gap 8 mmol/L (5-15) Blood Urea Nitrogen 11 mg/dL (7-18) Creatinine 1.1 MG/DL (0.55-1.30) Estimat Glomerular Filtration Rate > 60 mL/min (>60) Glucose Level 103 MG/DL (74-106) Calcium Level 8.8 MG/DL (8.5-10.1) Phosphorus Level 3.2 MG/DL (2.5-4.9) Magnesium Level 1.8 MG/DL (1.8-2.4) Current Medications Medications (Trade) Dose Ordered Sig/Dakota Route PRN Reason Start Time Stop Time Status Last Admin Dose Admin Acetaminophen (Tylenol) 650 mg Q4H PRN ORAL Mild Pain/Temp > 100.5 10/30/18 03:30 11/29/18 03:29 Ceftriaxone Sodium 1 gm/ Dextrose 55 ml @ 110 mls/hr Q24H IVPB 10/31/18 09:00 11/07/18 08:59 10/31/18 10:27 Diphenhydramine HCl (Benadryl) 25 mg Q4H PRN ORAL Itching 10/30/18 03:30 11/29/18 03:29 Hydromorphone HCl (Dilaudid) 0.5 mg Q4H PRN IVP Severe Pain (Pain Scale 7-10) 10/30/18 03:30 11/06/18 03:29 10/30/18 12:25 Metoclopramide HCl (Reglan) 10 mg Q6H PRN IVP Nausea & Vomiting 10/30/18 11:15 11/29/18 11:14 Ondansetron HCl (Zofran) 4 mg Q6H PRN IVP Nausea & Vomiting 10/30/18 03:30 11/29/18 03:29 10/30/18 09:40 Sodium Chloride 1,000 ml @ 75 mls/hr [id number] IV 10/30/18 04:00 11/29/18 03:59 10/30/18 19:50 Evan Pressley MD Oct 31, 2018 12:15
[2018-10-31 16:00] VITALS: BP 137/63
--- NOTE | 2018-10-31 16:09 | NUR ---
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
--- NOTE | 2018-10-31 16:30 | NUR ---
NURSE NOTES: Patient cleared for discharge by Urology, GI, MD Lowery, I called to get clerance from CLARK Pressley. Waiting for order.
--- NOTE | 2018-10-31 17:52 | General Progress Note ---
Assessment/Plan Assessment/Plan (1) Nephrolithiasis (2) Urethral stone (3) Intractable pain patient to be continued on Dilaudid as needed. D/w Dr. Swanson and he concurred. Subjective Date patient seen: Oct 31, 2018 Time patient seen: 05:00 - pm Constitutional: Reports: no symptoms HEENT: Reports: no symptoms Cardiovascular: Reports: no symptoms Respiratory: Reports: no symptoms Gastrointestinal/Abdominal: Reports: no symptoms Genitourinary: Reports: no symptoms Neurologic/Psychiatric: Reports: no symptoms Endocrine: Reports: no symptoms Hematologic/Lymphatic: Reports: no symptoms Allergies: Coded Allergies: BEE VENOM PROTEIN (HONEY BEE) (Verified Allergy, Unknown, 10/29/18) Subjective Patient denies pain at this time and reports feeling better. Objective Last 24 Hour Vital Signs Date Time Temp Pulse Resp B/P (MAP) Pulse Ox O2 Delivery O2 Flow Rate FiO2 10/31/18 16:00 98.2 107 18 137/63 (87) 95 10/31/18 12:00 97.9 82 18 136/81 (99) 97 10/31/18 09:00 Room Air 10/31/18 08:00 97.0 83 18 123/89 (100) 97 10/31/18 04:00 96.8 88 18 128/74 (92) 97 10/30/18 21:00 Room Air 10/30/18 20:07 98.6 77 18 135/82 (99) 98 Intake and Output 10/30/18 10/31/18 18:59 06:59 Intake Total 1075 ml 1320 ml Output Total 100 ml Balance 975 ml 1320 ml Intake Oral 250 ml 420 ml IV Total 825 ml 900 ml Output Urine Total 100 ml # Voids 4 3 Laboratory Tests 10/31/18 00:00: Stool Occult Blood Negative 10/31/18 07:15: White Blood Count 8.9, Red Blood Count 4.63L, Hemoglobin 13.8L, Hematocrit 40.3L , Mean Corpuscular Volume 87, Mean Corpuscular Hemoglobin 29.8, Mean Corpuscular Hemoglobin Concent 34.2, Red Cell Distribution Width 11.5L, Platelet Count 210, Mean Platelet Volume 7.7, Neutrophils (%) (Auto) 59.4, Lymphocytes (%) (Auto) 30.2, Monocytes (%) (Auto) 8.6, Eosinophils (%) (Auto) 1.4, Basophils (%) (Auto) 0.4, Sodium Level 138, Potassium Level 3.5, Chloride Level 104, Carbon Dioxide Level 26, Anion Gap 8, Blood Urea Nitrogen 11, Creatinine 1.1, Estimat Glomerular Filtration Rate > 60, Glucose Level 103, Calcium Level 8.8, Phosphorus Level 3.2, Magnesium Level 1.8 Height (Feet): 6 Height (Inches): 1.00 Weight (Pounds): 204 General Appearance: no apparent distress, alert EENT: PERRL/EOMI, normal ENT inspection Neck: non-tender, normal alignment Cardiovascular: normal rate, regular rhythm Respiratory/Chest: lungs clear, normal breath sounds Abdomen: non tender, soft Extremities: non-tender Edema: no edema noted Arm (L), no edema noted Arm (R), no edema noted Leg (L), no edema noted Leg (R), no edema noted Pedal (L), no edema noted Pedal (R), no edema noted Generalized Neurologic: alert, oriented x 3 Skin: warm/dry Geovanni Fletcher Oct 31, 2018 17:52
[2018-10-31] MEDS ORDERED: 1/2 NS 1000ml IV ONE (18:03)
--- NOTE | 2018-10-31 18:06 | NUR ---
NURSE NOTES: Patient left the floor around 1800, accompanied by girlfriend; patient is ambulatory, stable. Belonging lists signed by the discharging nurse and patient; printed package given [place] [facility] [place] removed, name tag removed; patient is aware of up coming follow up appointment with [facility].
--- NOTE | 2018-11-01 09:32 | Discharge Summary ---
Discharge Summary Discharge Summary _ DATE OF ADMISSION: 10/30/2018 DATE OF DISCHARGE: 10/31/2018 DISCHARGED BY: Dr. Quiana Monae CONSULTANTS: Dr. Charlene Dallas [facility] HOSPITAL COURSE: Patient is a 33-year-old male, no past medical history, who presented to ED complaining of acute onset of abdominal pain and testicular pain. Onset was about an hour prior to presentation. He had multiple episodes of vomiting. Pain was 10 out of 10. Pain radiated to bilateral testicle but most likely on the left side. He was given 8 mg of morphine and Zofran by EMS. Pain was better however was still 8 out of 10. There was no diarrhea. He denied any other complaints. On evaluation at ED, patient still had pain and vomiting. Blood work showed WBC of 16, hemoglobin and hematocrit were stable. Electrolytes were normal. Urinalysis showed 5+ blood, 1+ leukocyte esterase, too many to count RBC, 2-4 WBC. Urine toxicology screen was positive for marijuana. Abdominal and pelvic CT showed positive for millimeter left mid to distal ureteral calculus with minimal dilatation of the left ureter and renal collecting system. He was then admitted for evaluation of renal colic and ureteral stone. He was given IV hydration. Pain management was consulted. Given Dilaudid. He was given symptomatic treatment for nausea and vomiting. He was initially placed on clear liquid diet. He was seen by GI, diet was advanced as tolerated. ID was consulted. Patient was initially started on Zosyn, antibiotic was switched to Rocephin. Leukocytosis resolved. Urine culture did not isolate any growth. Antibiotic was discontinued. Patient was feeling better. He was cleared by urologist. He was discharged home. FINAL DIAGNOSES: Renal colic due to left ureteral stone DISPOSITION: Patient was discharged home. DISCHARGE INSTRUCTIONS: Follow-up in a week. I have been assigned to complete a discharge summary on this account, I was not involved with the patient's management. Amy Vizcarra NP Nov 01, 2018 09:32
== END 2018-10-31 18:04 | disposition home or self-care (01) | DRG 694 ==
LOC: EDBD 23:00 → EMR 23:30 → 4E 10-30 02:00 → EDBEDREQ 10-30 02:25 → 4E 10-30 03:30
DX: N20.1 Calculus of ureter (principal); N21.1 Calculus in urethra; Z91.030 Bee allergy status; K52.9 Noninfective gastroenteritis and colitis, unspecified; K21.9 Gastro-esophageal reflux disease without esophagitis; Z87.891 Personal history of nicotine dependence
CPT/HCPCS: 36415; 74176; 80048; 80053; 80307; 81003; 82270; 83690; 83735; 84100; 85025; 87086; 96361; 96365; 96375; 99285; J2405; J2765